=== PATIENT | male | born 1955 | race Caucasian/White ===

== ENCOUNTER 2017-06-29 21:35 | Emergency (ER) | payer BC ==
[2017-06-29] MEDS ORDERED: Sodium Chloride 0.9% 10 ML Syringe FLUSH PRN (21:52)
[2017-06-29 22:14] VITALS: BP 120/68
[2017-06-29 22:46] LABS: CHLORIDE,CL 103 mmol/L (98-107); SODIUM,NA 139 mmol/L (136-145)
--- NOTE | 2017-06-29 23:24 | EDM.PDOC ---
ED HPI GENERAL MEDICAL PROBLEM - General Chief Complaint: Chest Pain Stated Complaint: epigastric pain Time Seen by Provider: 06/29/17 21:45 Source of Information: Reports: Patient History Limitations: Reports: No Limitations - History of Present Illness INITIAL COMMENTS - FREE TEXT/NARRATIVE: Pt. states that he developed epigastric pain approx. 1 hour after eating a fatty meal. Pt. states that he has not experienced discomfort like this in the past. Pt. was admitted for observation at our facility several years ago with substernal chest pain, but states that the discomfort was different. Pt. states that he has not been experiencing any chalky, deirdre-colored stools or dark, tea- colored urine. Pt. states that he has not been experiencing any fever or chills, weakness or lightheadedness, or substernal chest pain. Pt. states that the discomfort resolved almost completely by the time he arrived to the ER. Onset: Today Onset Time: 20:00 Location: Reports: Abdomen Quality: Reports: Ache, Burning Severity: Mild Improves with: Reports: None Worsens with: Reports: Eating, Other (palpation) Associated Symptoms: Reports: No Other Symptoms chest Pain Score (Numeric/FACES): 1 - Related Data Allergies Allergy/AdvReac Type Severity Reaction Status Date / Time No Known Allergies Allergy Verified 06/29/17 21:57 Home Meds: Home Meds . [No Known Home Meds] 06/29/17 [History] Past Medical History - Past Health History Medical/Surgical History: Denies Medical/Surgical History Social & Family History - Tobacco Use Smoking Status *Q: Never Smoker - Recreational Drug Use Recreational Drug Use: No - Living Situation & Occupation Living situation: Reports: Single Occupation: Employed ED ROS GENERAL - Review of Systems Review Of Systems: See Below Constitutional: Reports: No Symptoms HEENT: Reports: No Symptoms Respiratory: Reports: No Symptoms Cardiovascular: Reports: No Symptoms Endocrine: Reports: No Symptoms GI/Abdominal: Reports: Abdominal Pain (epigastric) : Reports: No Symptoms Musculoskeletal: Reports: No Symptoms Skin: Reports: No Symptoms Neurological: Reports: No Symptoms Psychiatric: Reports: No Symptoms Hematologic/Lymphatic: Reports: No Symptoms Immunologic: Reports: No Symptoms ED EXAM, GI/ABD - Physical Exam Exam: See Below General Appearance: Alert, No Apparent Distress Throat/Mouth: Normal Inspection, Normal Lips, Normal Teeth, Normal Oropharynx, No Airway Compromise Head: Atraumatic, Normocephalic Neck: Normal Inspection, Supple, Non-Tender Respiratory/Chest: No Respiratory Distress, Lungs Clear, Normal Breath Sounds, No Accessory Muscle Use, Chest Non-Tender Cardiovascular: Normal Peripheral Pulses, Regular Rate, Rhythm GI/Abdominal Exam: Normal Bowel Sounds, Soft, No Organomegaly, Other ( reproducible epigastric pain) (Male) Exam: Deferred Rectal (Males) Exam: Deferred Back Exam: Normal Inspection, Full Range of Motion Extremities: Normal Inspection, Normal Range of Motion, Non-Tender, Normal Capillary Refill Neurological: Alert, Oriented, CN II-XII Intact, Normal Cognition, Normal Gait, Normal Reflexes Skin Exam: Warm, Dry, Intact, Normal Color EKG INTERPRETATION EKG Date: 06/29/17 Rhythm: NSR (sinus bradycardia-unchanged from 2013) Comparison: No Change Course - Vital Signs Last Recorded V/S: Last Vital Signs Temp 36.6 C 06/29/17 21:53 Pulse 51 L 06/29/17 21:53 Resp 14 06/29/17 21:53 BP 120/68 06/29/17 21:53 Pulse Ox 96 06/29/17 21:53 - Orders/Labs/Meds Orders: Active Orders 24 hr Category Date Time Status EKG Documentation Completion [RC] STAT Care 06/29/17 21:52 Ordered Chest 2V [CR] Stat Exams 06/29/17 22:07 Taken Peripheral IV Insertion Adult [OM.PC] Routine Oth 06/29/17 21:52 Ordered Labs: Laboratory Tests 06/29/17 06/29/17 06/29/17 Range/Units 22:09 22:09 22:09 WBC 8.1 (4.0-10.0) x10^3/uL RBC 4.70 (4.5-6.0) x10^6/uL Hgb 14.3 (14.0-18.0) g/dL Hct 42.5 (40.0-52.0) % MCV 90.4 (78.0-93.0) fL MCH 30.4 (26.0-32.0) pg MCHC 33.6 (32.0-36.0) g/dL RDW Coeff of Luis 12.6 (10.0-15.0) % Plt Count 282 D (130-400) x10^3/uL Neut % (Auto) 49.1 L (50.0-80.0) % Lymph % (Auto) 36.1 (25.0-50.0) % [place] % (Auto) 10.8 (2.0-11.0) % Eos % (Auto) 3.5 (0.0-4.0) % Baso % (Auto) 0.5 (0.2-1.2) % PT 10.2 (9.8-11.8) SEC INR 0.9 L (2.0-3.5) POC Sodium Sodium 139 (136-145) mmol/L POC Potassium Potassium 3.9 (3.5-5.1) mmol/L POC Chloride Chloride 103 (98-107) mmol/L Carbon Dioxide 30 (21-32) mmol/L POC Total CO2 POC BUN BUN 22 H (7-18) mg/dL Creatinine 1.3 (0.70-1.30) mg/dL POC Creatinine Est Cr Clr Drug Dosing 67.44 mL/min Estimated GFR (MDRD) 56 Glucose 118 H (74-106) mg/dL POC Glucose Calcium 9.0 (8.5-10.1) mg/dL Corrected Calcium 9.32 (8.5-10.1) mg/dL Total Bilirubin 0.5 (0.2-1.0) mg/dL AST 81 H (15-37) U/L ALT 73 H (16-63) U/L Alkaline Phosphatase 77 (46-116) U/L Creatine Kinase 240 (39-308) U/L Creatine Kinase Index 0.8 (0.0-4.0) % CK-MB (CK-2) 1.9 (0.0-3.6) ng/mL POC Troponin I (0.00-0.08) ng/mL C-Reactive Protein < 0.2 (<=0.9) mg/dL Total Protein 7.1 (6.4-8.2) g/dL Albumin 3.6 (3.4-5.0) g/dL Globulin 3.5 Albumin/Globulin Ratio 1.03 TSH, Ultra Sensitive 2.391 (0.358-3.74) uIU/mL 06/29/17 06/29/17 Range/Units 22:17 22:20 WBC (4.0-10.0) x10^3/uL RBC (4.5-6.0) x10^6/uL Hgb (14.0-18.0) g/dL Hct (40.0-52.0) % MCV (78.0-93.0) fL MCH (26.0-32.0) pg MCHC (32.0-36.0) g/dL RDW Coeff of Luis (10.0-15.0) % Plt Count (130-400) x10^3/uL Neut % (Auto) (50.0-80.0) % Lymph % (Auto) (25.0-50.0) % [place] % (Auto) (2.0-11.0) % Eos % (Auto) (0.0-4.0) % Baso % (Auto) (0.2-1.2) % PT (9.8-11.8) SEC INR (2.0-3.5) POC Sodium Cancelled Sodium (136-145) mmol/L POC Potassium Cancelled Potassium (3.5-5.1) mmol/L POC Chloride Cancelled Chloride (98-107) mmol/L Carbon Dioxide (21-32) mmol/L POC Total CO2 Cancelled POC BUN Cancelled BUN (7-18) mg/dL Creatinine (0.70-1.30) mg/dL POC Creatinine Cancelled Est Cr Clr Drug Dosing mL/min Estimated GFR (MDRD) Glucose (74-106) mg/dL POC Glucose Cancelled Calcium (8.5-10.1) mg/dL Corrected Calcium (8.5-10.1) mg/dL Total Bilirubin (0.2-1.0) mg/dL AST (15-37) U/L ALT (16-63) U/L Alkaline Phosphatase (46-116) U/L Creatine Kinase (39-308) U/L Creatine Kinase Index (0.0-4.0) % CK-MB (CK-2) (0.0-3.6) ng/mL POC Troponin I 0.00 (0.00-0.08) ng/mL C-Reactive Protein (<=0.9) mg/dL Total Protein (6.4-8.2) g/dL Albumin (3.4-5.0) g/dL Globulin Albumin/Globulin Ratio TSH, Ultra Sensitive (0.358-3.74) uIU/mL Meds: Medications Discontinued Medications Generic Name Dose Route Start Last Admin Trade Name Jocelyne PRN Reason Stop Dose Admin Sodium Chloride 10 ml 06/29/17 21:52 Saline Flush FLUSH ASDIRECTED PRN Keep Vein Open Departure - Departure Time of Disposition: 23:23 Disposition: Home, Self-Care 01 Condition: Good (Epigastric pain, elevated LFTs) Clinical Impression: Postprandial epigastric pain - Discharge Information Instructions: Cholelithiasis, Low-Fat Diet for Pancreatitis or Gallbladder Conditions Referrals: PCP,None [Primary Care Provider] - Forms: ED Department Discharge Additional Instructions: Home to rest. Radiology will contact you regarding an appointment for a gallbladder ultrasound. Return to the ER if the discomfort is unrelenting, if you have fever or chills, weakness or lightheadedness. Ibuprofen 600mg every 6 hours as needed for pain. - Problem List & Annotations (1) Postprandial epigastric pain SNOMED Code(s): 57224256 Code(s): R10.13 - EPIGASTRIC PAIN Status: Acute - My Orders Last 24 Hours: My Active Orders 06/29/17 21:52 EKG Documentation Completion [RC] STAT Peripheral IV Insertion Adult [OM.PC] Routine 06/29/17 22:07 Chest 2V [CR] Stat - Assessment/Plan Last 24 Hours: My Active Orders 06/29/17 21:52 EKG Documentation Completion [RC] STAT Peripheral IV Insertion Adult [OM.PC] Routine 06/29/17 22:07 Chest 2V [CR] Stat Assessment:: Epigastric pain Plan: Radiology will contact you regarding an appointment for a gallbladder ultrasound. Return to the ER if the discomfort is unrelenting, if you have fever or chills, weakness or lightheadedness. Ibuprofen 600mg every 6 hours as needed for pain.
== END 2017-06-29 23:23 | disposition home or self-care (01) ==
LOC: VM.ED 21:35
DX: R10.13 Epigastric pain (principal)
CPT/HCPCS: 71020; 80053; 82550; 82553; 84443; 84484; 85025; 85610; 86140; 93005; 99285

== ENCOUNTER 2022-12-02 02:56 | Emergency (ER) | payer BC ==
[2022-12-02] MEDS: Sodium Chloride 0.9% 10 ML Syringe FLUSH PRN (03:10)
[2022-12-02] MEDS: Sodium Chloride 0.9% 1,000 ML IV SCH (03:11)
[2022-12-02] MEDS: Ondansetron 4 MG/2 ML SDV IVPUSH ONE (03:12)
[2022-12-02] MEDS: Ketorolac 15 MG/ML SDV IVPUSH ONE (03:15)
[2022-12-02] MEDS: HYDROmorphone 0.5 MG/0.5 ML Syringe IVPUSH ONE (03:18)
[2022-12-02 03:35] LABS: ANION GAP 13.3 mmol/L (5-15)
[2022-12-02] MEDS: Sodium Chloride 0.9% 500 ML IV ONE (04:02)
[2022-12-02 04:33] VITALS: BP 136/72; PULSE 57
[2022-12-02] MEDS: Take Home: Acetaminophen/HYDROcodone 325-10 MG, 5 Tab Pack PO ONE (04:42)
[2022-12-02] MEDS: Tamsulosin 0.4 MG Cap.ER PO ONE (04:42)
== END 2022-12-02 05:00 | disposition home or self-care (01) ==
LOC: VM.ED 02:56
DX: N13.2 Hydronephrosis with renal and ureteral calculous obstruction (principal)
CPT/HCPCS: 74176; 80053; 81001; 85025; 96361; 96374; 96375; 99284-25; A9270-GY; J1170; J1885; J2405; J3490; J7030

== ENCOUNTER 2025-06-17 19:48 | Emergency (ER) | payer BC, MEDICARE ==
[2025-06-17 22:50] VITALS: BP 141/71; PULSE 94
== END 2025-06-17 20:26 | disposition home or self-care (01) ==
LOC: VM.ED 19:48
DX: L76.22 Postprocedural hemorrhage of skin and subcutaneous tissue following other procedure (principal)
CPT/HCPCS: 99283